=== PATIENT | female | born 1975 | race African-American/Black ===

== ENCOUNTER 2020-05-24 22:08 | Emergency (ER) | payer BC ==
[~2020-05-24] VITALS: Ht 167.6 cm; Wt 85.0 kg
[2020-05-24 22:37] VITALS: BP 134/88
[2020-05-24] MEDS ORDERED: LIDOCAINE/EPI/TETRACAINE TOPICAL GEL 3 ML. TP ONE (23:00)
[2020-05-24] MEDS ORDERED: DIPH,PERTUSS(ACELL),TET VAC/PF 0.5 ML SYRINGE. VAX IM ONE (23:10)
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
[2020-05-25] MEDS ORDERED: CEPH500C PO (00:23)
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
[2020-05-25] MEDS ORDERED: CEPHALEXIN 250 MG CAPSULE PO ONE (01:00)
== END 2020-05-25 01:01 | disposition home or self-care (01) ==
LOC: ER 22:08
DX: S01.01XA Laceration without foreign body of scalp, initial encounter (principal); E03.9 Hypothyroidism, unspecified; Z88.5 Allergy status to narcotic agent; W64.XXXA Exposure to other animate mechanical forces, initial encounter; Y93.89 Activity, other specified; Y92.89 Other specified places as the place of occurrence of the external cause; Y99.8 Other external cause status
CPT/HCPCS: 12001; 70450; 90471; 90715; 99284

== ENCOUNTER → 2021-03-20 | Outpatient (CLI) | payer BC ==
[~2021-03-20] MED LIST: CEPH500C PO
--- NOTE | 2021-03-21 10:03 | RAD ---
CT MAXILLOFACIAL WITHOUT CONTRAST History: Reason: RIGHT EXOPHTHALMOS, GRAVES DISEASE, RT ORBITAL SWELLING/MIGRAINES / Spl. Instruction s: / History: Comparison: None. Technique: Noncontrast CT imaging was performed of the maxillofacial. Coronal and sagittal reconstruc tions were performed. Exposure: One or more of the following individualized dose reduction techniques were utilized for thi s examination: 1. Automated exposure control 2. Adjustment of the mA and/or kV according to patient size 3. Use of iterative reconstruction technique. Findings: No acute maxillofacial fracture. Mild right proptosis. Slight increased size of the right inferior and lateral rectus extraocular musc les. No infiltration of the retro-orbital fat. Symmetric appearance of the optic nerve sheath. Normal appearance of the globes. Paranasal sinuses and mastoid air cells are clear. Imaged intracranial contents are unremarkable. Impression: 1. Mild right proptosis with slight enlargement of the right inferior and lateral rectus muscles, ca n be seen with thyroid orbitopathy given history. Electronically signed by: Yusuf Estevez DO (03/21/2021 10:01 AM) [id number]
== END ==
LOC: CT 15:28
PROVIDERS: ATTEND Physician Assistant Medical
DX: E05.00 Thyrotoxicosis with diffuse goiter without thyrotoxic crisis or storm (principal); H05.20 Unspecified exophthalmos
CPT/HCPCS: 70486